=== PATIENT | female | born 1945 | race Caucasian/White ===

== ENCOUNTER 2020-02-18 12:48 | Emergency (ER) | payer MEDICARE, OTHER ==
[~2020-02-18] VITALS: Ht 152.4 cm; Wt 74.4 kg
[2020-02-18] MEDS ORDERED: LISINOPRIL20 MG PO (13:16)
[2020-02-18 13:40] LABS: INFLUENZA A ANTIGEN Negative (Negative); INFLUENZA B ANTIGEN Negative (Negative)
[2020-02-18] MEDS ORDERED: ZOFRAN ODT4 MG DISSOLVE (13:45)
[2020-02-18 13:54] VITALS: BP 145/70
== END 2020-02-18 13:54 | disposition home or self-care (01) ==
LOC: M.ERS 12:48
PROVIDERS: Nurse Practitioner Family
DX: B34.9 Viral infection, unspecified (principal); Z20.828 Contact with and (suspected) exposure to other viral communicable diseases; Z79.899 Other long term (current) drug therapy; Z88.5 Allergy status to narcotic agent